=== PATIENT | female | born 1950 | race African-American/Black ===

== ENCOUNTER 2016-09-16 16:58 | Emergency (ER) | payer MEDICAID ==
[~2016-09-16] VITALS: Ht 149.9 cm; Wt 65.0 kg
[~2016-09-16 16:58] MED LIST: ALBU18HF2 IH; ALBU2.5V13 NEB; DIPH50TA19 PO; ESCI20TA PO; FERR-63 PO; FLUT9.9S BOTHNSTRLS; HALO100A IM; HYDR25TA PO; LORA10TA7 PO; LOSA50TA20 PO; MONT10TA24 PO; [UNRECOGNIZED DRUG - CODE] PO
[2016-09-16] MEDS ORDERED: FLUORESCEIN SODIUM 1MG/STRIP RIGHTEYE ONE (19:45)
[2016-09-16 19:56] VITALS: BP 160/82
== END 2016-09-16 22:07 | disposition home or self-care (01) ==
LOC: ER 16:59
DX: B02.30 Zoster ocular disease, unspecified (principal); I10 Essential (primary) hypertension; F20.9 Schizophrenia, unspecified; M79.89 Other specified soft tissue disorders; Z79.899 Other long term (current) drug therapy
CPT/HCPCS: 99283

== ENCOUNTER 2017-12-15 10:24 | Emergency (ER) | payer MEDICAID ==
[~2017-12-15] VITALS: Ht 152.4 cm; Wt 79.6 kg
[~2017-12-15 10:24] MED LIST changes: +OMEP-265 PO; -[UNRECOGNIZED DRUG - CODE] PO
[2017-12-15 15:31] VITALS: BP 134/73
== END 2017-12-15 15:33 | disposition home or self-care (01) ==
LOC: ER 10:48
DX: R51 Headache (principal); S16.1XXA Strain of muscle, fascia and tendon at neck level, initial encounter; I10 Essential (primary) hypertension; W18.2XXA Fall in (into) shower or empty bathtub, initial encounter; Z91.81 History of falling; Y93.E1 Activity, personal bathing and showering; Y92.091 Bathroom in other non-institutional residence as the place of occurrence of the external cause; Z79.899 Other long term (current) drug therapy
CPT/HCPCS: 70450; 72125; 99284

== ENCOUNTER 2019-03-05 16:02 | Inpatient (IN) | payer MEDICAID ==
[~2019-03-05] VITALS: Ht 152.4 cm; Wt 77.1 kg
[~2019-03-05 16:02] MED LIST changes: -LOSA50TA20 PO; +LOSA50TA41 PO
[2019-03-05] MEDS ORDERED: ALBUTEROL (0.083%) 2.5MG/3ML NEB HHN STA (16:57)
[2019-03-05] MEDS ORDERED: IPRATROPIUM BROMIDE (0.02%) 0.5MG/2.5ML NEB HHN STA (16:57)
[2019-03-05] MEDS ORDERED: METHYLPREDNISOLONE SOD SUCC 125 MG/2 ML VIAL IV STA (16:57)
[2019-03-05] MEDS ORDERED: SODIUM CHLORIDE 0.9% 1,000 ML IV ONE (16:57)
[2019-03-05 17:55] LABS: BASOPHILS % 0.5 % (0.0-2.0); EOSINOPHILS % 3.9 % (0.0-5.0); HEMATOCRIT. 23.3 % (36.0-48.0); HEMOGLOBIN. 7.6 g/dL (12.0-16.0); LYMPHOCYTES % 16.1 % (20.0-50.0); MEAN PLATELET VOLUME 9.8 fl (7.4-10.4); MONOCYTES % 12.1 % (2.0-8.0); NEUTROPHILS % 67.4 % (40.0-76.0); PLATELET 324 x1000/uL (130-400); RED BLOOD CELL COUNT 2.38 mill/uL (4.2-5.4); RED CELL DISTRIBUTION WIDTH 24.5 % (11.6-14.6)
[2019-03-05 18:00] LABS: CHLORIDE 103 mEq/L (98-107); INR 1.1; PROTHROMBIN TIME 11.5 sec (9.6-11.0)
[2019-03-05] MEDS ORDERED: MAGNESIUM 2 G PREMIX 50 ML IV ONE (18:00)
[2019-03-05] MEDS ORDERED: LEVOFLOXACIN 500MG PREMIX 100 ML IV ONE (18:15)
[2019-03-05 18:24] LABS: PLATELET ESTIMATE NORMAL
[2019-03-05 19:57] LABS: CLARITY URINE CLEAR (CLEAR); COLOR URINE YELLOW (YELLOW); KETONES URINE NEGATIVE (NEGATIVE); LEUKOCYTE ESTERASE URINE NEGATIVE (NEGATIVE); NITRITE URINE NEGATIVE (NEGATIVE); OCCULT BLOOD URINE NEGATIVE (NEGATIVE); PH URINE 5.5 (4.5-8.0); PROTEIN URINE TRACE (NEGATIVE); SPECIFIC GRAVITY URINE 1.018 (1.005-1.030)
[2019-03-05 20:00] VITALS: BP 112/55
[2019-03-05] MEDS ORDERED: DOCUSATE SODIUM 100MG CAPSULE PO PRN (20:30)
[2019-03-05] MEDS ORDERED: ONDANSETRON HCL 4MG/2ML INJ IV PRN (20:30)
[2019-03-05] MEDS ORDERED: MAGNESIUM/ALUMINUM HYDROXIDE/SIMETHICONE 30ML UDC PO PRN (20:30)
[2019-03-05] MEDS ORDERED: ACETAMINOPHEN 325MG TABLET PO PRN (20:30)
[2019-03-05] MEDS ORDERED: CLONIDINE 0.1MG TABLET PO PRN (20:30)
[2019-03-05] MEDS ORDERED: GUAIFENESIN 200MG/10ML SUGAR FREE UDC PO PRN (20:30)
[2019-03-05 21:00] VITALS: BP 112/49
[2019-03-05] MEDS ORDERED: ARIP2TAB3 MT (21:40)
[2019-03-05] MEDS ORDERED: DOCU-138 MT (21:40)
[2019-03-05] MEDS: AZITHROMYCIN 500 MG TABLET PO SCH (22:18)
[2019-03-05] MEDS: METHYLPREDNISOLONE SOD SUCC 40 MG/ML VIAL IV SCH (22:19)
[2019-03-05] MEDS: ENOXAPARIN 40MG/0.4ML SYR SUBCUT SCH (22:19)
[2019-03-05] MEDS ORDERED: CEFTRIAXONE 1 G PREMIX 50 ML IV SCH (22:30)
[2019-03-06] VITALS: BP 108/47
[2019-03-06 00:07] LABS: CHLORIDE 108 mEq/L (98-107)
[2019-03-06 00:18] LABS: TOTAL IRON BINDING CAPACITY 97 ug/dL (250-450)
[2019-03-06 00:22] LABS: CREATINE KINASE 85 IU/L (26-192)
[2019-03-06 00:24] LABS: CREATINE KINASE MB FRACTION 2.2 ng/mL (0.5-3.6)
[2019-03-06 04:00] VITALS: BP 108/48
[2019-03-06] MEDS: METHYLPREDNISOLONE SOD SUCC 40 MG/ML VIAL IV SCH ×2 (05:33→14:45)
[2019-03-06 07:11] LABS: LDL CHOLESTEROL 49 mg/dL (5-100)
[2019-03-06 07:13] LABS: CREATINE KINASE 82 IU/L (26-192)
[2019-03-06 07:15] LABS: HDL CHOLESTEROL 41 mg/dL (40-59)
[2019-03-06 07:22] LABS: CREATINE KINASE MB FRACTION 2.1 ng/mL (0.5-3.6)
[2019-03-06 08:00] VITALS: BP 119/67
[2019-03-06] MEDS: BUDESONIDE 0.5MG/2ML NEB HHN SCH ×2 (08:45→20:58)
[2019-03-06] MEDS ORDERED: CHOL200074 MT (09:17)
[2019-03-06] MEDS ORDERED: AMLO10TA80 MT (09:17)
[2019-03-06] MEDS: OMEPRAZOLE 20MG CAPSULE EXTENDED RELEASE PO SCH (09:47)
[2019-03-06] MEDS: AZITHROMYCIN 500 MG TABLET PO SCH (09:47)
[2019-03-06 12:00] VITALS: BP 117/68
[2019-03-06] MEDS ORDERED: NON FORMULARY PATIENT HOME MED XX SCH (14:45)
[2019-03-06] MEDS ORDERED: GUAIFENESIN-DM 200MG-20MG/10ML UDC PO PRN (14:45)
[2019-03-06 16:00] VITALS: BP 131/67
[2019-03-06] MEDS: ARIPIPRAZOLE 2MG TABLET PO SCH (16:22)
[2019-03-06] MEDS: MONTELUKAST SODIUM 10MG TABLET PO SCH (16:22)
[2019-03-06] MEDS: LORATADINE 10MG TABLET PO SCH (16:22)
[2019-03-06 20:00] VITALS: BP 132/75
[2019-03-06] MEDS: IPRATROPIUM/ALBUTEROL 0.5-3(2.5)MG/3ML NEB NEB PRN (20:59)
[2019-03-06] MEDS ORDERED: CEFTRIAXONE 1 G PREMIX 50 ML IV SCH (21:00)
[2019-03-06] MEDS: ENOXAPARIN 40MG/0.4ML SYR SUBCUT SCH (22:16)
[2019-03-06] MEDS: CEFTRIAXONE 1 G PREMIX 50 ML IV SCH (23:56)
[2019-03-07] VITALS: BP 132/72
[2019-03-07 04:00] VITALS: BP 125/59
[2019-03-07 08:00] VITALS: BP 110/61
[2019-03-07] MEDS: BUDESONIDE 0.5MG/2ML NEB HHN SCH ×2 (08:08→21:16)
[2019-03-07] MEDS: ARIPIPRAZOLE 2MG TABLET PO SCH (08:57)
[2019-03-07] MEDS: AZITHROMYCIN 500 MG TABLET PO SCH (08:58)
[2019-03-07] MEDS: CITALOPRAM HYDROBROMIDE 10MG TABLET PO SCH (08:58)
[2019-03-07] MEDS: OMEPRAZOLE 20MG CAPSULE EXTENDED RELEASE PO SCH (08:58)
[2019-03-07] MEDS: LORATADINE 10MG TABLET PO SCH (08:58)
[2019-03-07 12:00] VITALS: BP_SYST 116; BP_SYST 99; BP_DIAS 56; BP_DIAS 60
[2019-03-07 16:00] VITALS: BP 123/66
[2019-03-07] MEDS: MONTELUKAST SODIUM 10MG TABLET PO SCH (16:25)
[2019-03-07 20:00] VITALS: BP 114/77
[2019-03-07] MEDS: IPRATROPIUM/ALBUTEROL 0.5-3(2.5)MG/3ML NEB NEB PRN (21:15)
[2019-03-07] MEDS: CEFTRIAXONE 1 G PREMIX 50 ML IV SCH (22:12)
[2019-03-07] MEDS: ENOXAPARIN 40MG/0.4ML SYR SUBCUT SCH (22:12)
[2019-03-08] VITALS: BP 113/62
[2019-03-08 04:00] VITALS: BP 144/84
[2019-03-08] MEDS: IPRATROPIUM/ALBUTEROL 0.5-3(2.5)MG/3ML NEB NEB PRN (05:42)
[2019-03-08 05:57] LABS: CHLORIDE 106 mEq/L (98-107)
[2019-03-08 06:32] LABS: BASOPHILS % 0.5 % (0.0-2.0); EOSINOPHILS % 1.5 % (0.0-5.0); HEMATOCRIT. 23.5 % (36.0-48.0); HEMOGLOBIN. 7.5 g/dL (12.0-16.0); LYMPHOCYTES % 16.8 % (20.0-50.0); MEAN CORPUSCULAR HEMOGLOBIN 31.3 pg (28.0-32.0); MEAN CORPUSCULAR VOLUME 97.7 fL (81.0-99.0); MEAN PLATELET VOLUME 9.7 fl (7.4-10.4); MONOCYTES % 9.9 % (2.0-8.0); NEUTROPHILS % 71.3 % (40.0-76.0); PLATELET 353 x1000/uL (130-400); RED BLOOD CELL COUNT 2.41 mill/uL (4.2-5.4); RED CELL DISTRIBUTION WIDTH 24.2 % (11.6-14.6)
[2019-03-08 08:00] VITALS: BP 119/67
[2019-03-08] MEDS: OMEPRAZOLE 20MG CAPSULE EXTENDED RELEASE PO SCH (09:12)
[2019-03-08] MEDS: AZITHROMYCIN 500 MG TABLET PO SCH (09:12)
[2019-03-08] MEDS: CITALOPRAM HYDROBROMIDE 10MG TABLET PO SCH (09:12)
[2019-03-08] MEDS: ARIPIPRAZOLE 2MG TABLET PO SCH (09:12)
[2019-03-08] MEDS: LORATADINE 10MG TABLET PO SCH (09:12)
[2019-03-08] MEDS: BUDESONIDE 0.5MG/2ML NEB HHN SCH (10:01)
[2019-03-08 12:00] VITALS: BP 117/62
[2019-03-08 16:00] VITALS: BP 100/55
[2019-03-08] MEDS: MONTELUKAST SODIUM 10MG TABLET PO SCH (16:16)
[2019-03-08 16:23] VITALS: BP 100/55
[2019-03-08 20:23] LABS: PLATELET ESTIMATE NORMAL
== END 2019-03-08 18:25 | disposition home or self-care (01) | DRG 140 ==
LOC: ER 16:02 → 6EST 18:41 → EDBEDREQ 18:48 → EDBEDREQSVC 18:48 → CANBEDREQ 18:53 → ENRESERV 19:58
PROVIDERS: ADMIT Internal Medicine; ATTEND Internal Medicine
DX: J44.0 Chronic obstructive pulmonary disease with (acute) lower respiratory infection (principal); J15.9 Unspecified bacterial pneumonia; J12.9 Viral pneumonia, unspecified; D64.9 Anemia, unspecified; G89.29 Other chronic pain; I10 Essential (primary) hypertension; Z96.659 Presence of unspecified artificial knee joint; H91.92 Unspecified hearing loss, left ear; R62.50 Unspecified lack of expected normal physiological development in childhood; M54.9 Dorsalgia, unspecified; Z63.8 Other specified problems related to primary support group; Z79.899 Other long term (current) drug therapy
CPT/HCPCS: 36415; 71045; 80048; 80061; 81003; 82550; 82553; 83540; 83550; 83605; 83735; 83880; 84145; 84443; 84484; 85044; 93005; 93970; 94640; 97162; 99285; J0696; J1650; J1956; J2920; J2930; J3475; J7030; J7611; J7620; J7626

== ENCOUNTER 2020-11-10 10:18 | Emergency (ER) | payer MEDICAID ==
[~2020-11-10] VITALS: Ht 154.9 cm; Wt 91.0 kg
[~2020-11-10 10:18] MED LIST changes: +AMLO10TA80 MT; +ARIP2TAB3 MT; +CHOL200074 MT; +DOCU-138 MT; -MONT10TA24 PO; +MONT10TA32 PO
[2020-11-10 12:50] LABS: HEMOGLOBIN. 8.4 g/dL (12.0-16.0); MEAN CORPUSCULAR HEMOGLOBIN 34.9 pg (28.0-32.0); MEAN CORPUSCULAR VOLUME 103.5 fL (81.0-99.0); MEAN PLATELET VOLUME 10.1 fl (7.4-10.4); PLATELET 273 x1000/uL (130-400); RED BLOOD CELL COUNT 2.41 mill/uL (4.2-5.4); RED CELL DISTRIBUTION WIDTH 26.6 % (11.6-14.6)
[2020-11-10 12:58] LABS: CHLORIDE 110 mEq/L (98-107)
[2020-11-10 13:27] LABS: NUCLEATED RED BLOOD CELLS 1 /100 WBC
[2020-11-10 13:29] LABS: PLATELET ESTIMATE NORMAL
[2020-11-10 13:30] LABS: INR 1.1; PROTHROMBIN TIME 11.4 sec (9.6-11.0)
[2020-11-10 13:43] VITALS: BP 132/59
== END 2020-11-10 13:44 | disposition home or self-care (01) ==
LOC: ER 10:18
DX: D64.9 Anemia, unspecified (principal); R03.0 Elevated blood-pressure reading, without diagnosis of hypertension; J98.11 Atelectasis
CPT/HCPCS: 36415; 71045; 80053; 85025; 86850; 86900; 93005; 99285

== ENCOUNTER 2021-07-30 13:27 | Emergency (ER) | payer MEDICAID ==
[~2021-07-30] VITALS: Ht 152.4 cm; Wt 86.0 kg
[2021-07-30 14:57] LABS: BASOPHILS % 0.5 % (0.0-2.0); EOSINOPHILS % 3.7 % (0.0-5.0); HEMATOCRIT. 23.9 % (36.0-48.0); HEMOGLOBIN. 7.8 g/dL (12.0-16.0); LYMPHOCYTES % 26.6 % (20.0-50.0); MEAN CORPUSCULAR HEMOGLOBIN 33.6 pg (28.0-32.0); MEAN CORPUSCULAR VOLUME 102.4 fL (81.0-99.0); MEAN PLATELET VOLUME 9.8 fl (7.4-10.4); MONOCYTES % 13.1 % (2.0-8.0); NEUTROPHILS % 56.1 % (40.0-76.0); PLATELET 300 x1000/uL (130-400); RED BLOOD CELL COUNT 2.33 mill/uL (4.2-5.4); RED CELL DISTRIBUTION WIDTH 29.6 % (11.6-14.6)
[2021-07-30 15:10] LABS: CHLORIDE 106 mEq/L (98-107)
[2021-07-30 15:32] LABS: PLATELET ESTIMATE NORMAL
[2021-07-30 22:00] VITALS: BP 146/92
[2021-07-30] MEDS ORDERED: PANTOPRAZOLE 40MG DR TABLET PO ONE (22:30)
[2021-07-30] MEDS ORDERED: ACETAMINOPHEN 500MG TABLET PO ONE (22:30)
== END 2021-07-30 22:47 | disposition home or self-care (01) ==
LOC: ER 13:27
DX: D64.9 Anemia, unspecified (principal); K92.1 Melena; R51.9 Headache, unspecified; I12.9 Hypertensive chronic kidney disease with stage 1 through stage 4 chronic kidney disease, or unspecified chronic kidney disease; N18.9 Chronic kidney disease, unspecified
CPT/HCPCS: 36415; 71045; 80053; 83605; 83880; 84484; 85025; 86850; 86900; 99284

== ENCOUNTER 2021-09-03 11:28 | Emergency (ER) | payer MEDICAID ==
[~2021-09-03] VITALS: Ht 152.4 cm; Wt 61.0 kg
[2021-09-03] MEDS ORDERED: BACITRACIN ZINC OINT UDPKT TOP ONE (12:00)
[2021-09-03] MEDS ORDERED: LIDOCAINE HCL/EPINEPHRINE 1%-EPI 1:100,000 20 ML VIAL INFIL ONE (12:00)
[2021-09-03] MEDS ORDERED: DOXY100C5 MT (18:22)
[2021-09-03] MEDS ORDERED: CEPH500T MT (18:22)
[2021-09-03 18:38] VITALS: BP 133/56
== END 2021-09-03 18:58 | disposition home or self-care (01) ==
LOC: ER 11:28
DX: N61.1 Abscess of the breast and nipple (principal); I10 Essential (primary) hypertension
CPT/HCPCS: 10060; 76641; 87070; 87186; 87205; 99284; A4217; J3490; Z7610

== ENCOUNTER 2021-09-07 09:28 | Emergency (ER) | payer MEDICAID ==
[~2021-09-07] VITALS: Ht 147.3 cm; Wt 50.0 kg
[~2021-09-07 09:28] MED LIST changes: +CEPH500T MT; +DOXY100C5 MT
[2021-09-07 09:31] VITALS: BP 117/47
== END 2021-09-07 11:18 | disposition home or self-care (01) ==
LOC: ER 09:28
DX: Z48.00 Encounter for change or removal of nonsurgical wound dressing (principal)
CPT/HCPCS: 99281; 99282

== ENCOUNTER 2024-07-26 11:50 | Emergency (ER) | payer MEDICAID ==
[~2024-07-26] VITALS: Ht 162.6 cm; Wt 74.0 kg
[~2024-07-26 11:50] MED LIST changes: +MONT-39 PO; -MONT10TA32 PO
[2024-07-26 11:53] VITALS: O2SAT 95
[2024-07-26 12:09] VITALS: BP 140/52; PULSE 100; RESP 16; TEMP 36.9; O2SAT 94
[2024-07-26 12:36] LABS: HEMATOCRIT. 22.8 % (36.0-48.0); HEMOGLOBIN. 7.5 g/dL (12.0-16.0); MEAN CORPUSCULAR HEMOGLOBIN 32.6 pg (28.0-32.0); MEAN CORPUSCULAR HGB CONC 33.1 g/dL (31.0-37.0); MEAN CORPUSCULAR VOLUME 98.7 fL (81.0-99.0); MEAN PLATELET VOLUME 10.6 fl (7.4-10.4); PLATELET 434 x1000/uL (130-400); RED BLOOD CELL COUNT 2.31 mill/uL (4.2-5.4); WHITE BLOOD COUNT 7.8 x1000/uL (4.5-11.0)
[2024-07-26 12:45] LABS: DIFFERENTIAL COMMENT 1
[2024-07-26 12:52] LABS: CHLORIDE 104 mEq/L (98-107); SODIUM 140 mEq/L (136-145)
[2024-07-26 12:53] LABS: CALCIUM 9.6 mg/dL (8.7-10.4); CARBON DIOXIDE 28 mEq/L (21-32)
[2024-07-26 12:58] LABS: CREATININE 1.1 mg/dL (0.6-1.0); GLUCOSE 114 mg/dL (70-105); UREA NITROGEN BLOOD 18 mg/dL (9-23)
[2024-07-26 12:59] LABS: TROPONIN I HIGH SENSITIVITY 15 ng/L (3.0-34)
[2024-07-26] MEDS ORDERED: BENZ100C86 MT (13:16)
[2024-07-26 16:25] LABS: ANISOCYTOSIS 3+; PLATELET ESTIMATE INCREASED
== END 2024-07-26 13:55 | disposition home or self-care (01) ==
LOC: ER 11:50
DX: R05.9 Cough, unspecified (principal); B34.9 Viral infection, unspecified; I10 Essential (primary) hypertension; J44.89 Other specified chronic obstructive pulmonary disease; M19.90 Unspecified osteoarthritis, unspecified site; Z79.899 Other long term (current) drug therapy; Z96.659 Presence of unspecified artificial knee joint
CPT/HCPCS: 36415; 71045; 80048; 84484; 85025; 93005; 99285